=== PATIENT | female | born 1995 | race Caucasian/White ===

== ENCOUNTER → 2017-09-03 | Outpatient (CLI) | payer BC, OTHER ==
--- NOTE | 2017-09-03 10:02 | DIAGNOSTIC IMAGING REPORT ---
LUMBAR SPINE MIN 4 VIEWS CLINICAL HISTORY: 21 years-old Female presenting with LEFT LOW BACK PAIN. TECHNIQUE: Frontal, bilateral oblique, lateral, and coned in lateral views of the lumbar spine were obtained. COMPARISON: None. FINDINGS: Normal lumbar lordosis. No scoliosis. No pars defect. Vertebral bodies maintain normal height and alignment. Intervertebral disc spaces preserved. No degenerative change evident. No compression deformity or subluxation. No radiographic evidence of osseous neural foraminal narrowing. Moderate stool burden in the right and left colon. No bowel obstruction. IMPRESSION: 1. Normal lumbar spine. 2. Moderate stool burden suggest constipation. Electronically signed by: Mario Miner M.D. 09/03/2017 10:00 AM Dictated Date/Time: 09/03/2017 9:59 AM
== END | disposition home or self-care (01) ==
LOC: C.RDSM 09:51
PROVIDERS: ATTEND Family Medicine
DX: M54.5 Low back pain (principal); Z91.010 Allergy to peanuts; Z91.013 Allergy to seafood

== ENCOUNTER → 2017-09-29 | Outpatient (CLI) | payer BC, OTHER ==
--- NOTE | 2017-09-29 17:37 | DIAGNOSTIC IMAGING REPORT ---
LUMBAR SPINE MRI HISTORY: LOW BACK PAIN TECHNIQUE: Multiplanar multisequence MRI of the lumbar spine was performed without the use of contrast. COMPARISON: Lumbar spine 09/03/2017. FINDINGS: For the purpose of the report the L5-S1 disc space will be located on axial image 27 of 30. No fracture subluxation within the lumbar spine. Disc spaces are preserved. The L5-S1 disc space is slightly hypoplastic. The conus terminates at the T12-L1 disc space. The visualized retroperitoneal soft tissues are unremarkable. L1-L2: No significant central canal or neural foraminal narrowing. L2-L3: No significant central canal or neural foraminal narrowing. L3-L4: No significant central canal or neural foraminal narrowing. L4-L5: No significant central canal or neural foraminal narrowing. L5-S1: No significant central canal or neural foraminal narrowing. IMPRESSION: Normal lumbar spine MRI. Electronically signed by: Eris Joseph M.D. 09/29/2017 5:36 PM Dictated Date/Time: 09/29/2017 5:13 PM
== END | disposition home or self-care (01) ==
LOC: C.MRI 16:04
PROVIDERS: ATTEND Family Medicine Sports Medicine
DX: M54.5 Low back pain (principal)

== ENCOUNTER → 2017-10-06 | Outpatient (CLI) | payer BC, OTHER ==
--- NOTE | 2017-10-06 10:49 | DIAGNOSTIC IMAGING REPORT ---
LUMBAR SPINE WITHOUT CLINICAL HISTORY: 21 years-old Female presenting with LOW BACK PAIN. TECHNIQUE: Multidetector CT of the lumbar spine was performed without the use of intravenous contrast. IV contrast: None. A dose lowering technique was used consistent with the principles of ALARA (as low as reasonably achievable). COMPARISON: Plain radiographs from 09/03/2017. CT DOSE (mGy.cm): The estimated cumulative dose is 574.72 mGy.cm. FINDINGS: Label Stitcher topogram: Unremarkable. Normal lumbar lordosis. Vertebral bodies maintain normal height and alignment. Intervertebral disc spaces preserved. No acute fracture or subluxation. No osseous spinal canal or neural foraminal narrowing. Limited evaluation of the soft tissues demonstrates no CT evidence of disc bulge or effacement of neural foraminal fat. No pars defect. No transitional lumbosacral anatomy paraspinal soft tissues within normal limits. IMPRESSION: Normal lumbar spine. Electronically signed by: Mario Miner M.D. 10/06/2017 10:47 AM Dictated Date/Time: 10/06/2017 10:46 AM
== END | disposition home or self-care (01) ==
LOC: C.CTS 10:25
PROVIDERS: ATTEND Internal Medicine
DX: M54.5 Low back pain (principal)